=== PATIENT | female | born 1935 | race Caucasian/White ===

== ENCOUNTER 2017-12-23 10:17 | Day surgery (SDC) | payer OTHER ==
[~2017-12-23] VITALS: Ht 165.1 cm; Wt 72.6 kg
[2017-12-23] MEDS ORDERED: SEVOFLURANE 15 MIN GAS INH ONE (11:30)
[2017-12-23] MEDS ORDERED: KETOROLAC TROMETHAMINE 30 MG VIAL IVP ONE (11:30)
[2017-12-23] MEDS ORDERED: fentaNYL CITRATE/PF 100 MCG/2 ML AMP IVP ONE (11:30)
[2017-12-23] MEDS ORDERED: DEXAMETHASONE SOD PHOSPHATE 4 MG/ML VIAL IVP ONE (11:30)
[2017-12-23] MEDS ORDERED: ONDANSETRON HCL 4 MG/2 ML VIAL IVP ONE (11:30)
[2017-12-23] MEDS ORDERED: MIDAZOLAM HCL 5 MG/5 ML VIAL IVP ONE (11:30)
[2017-12-23] MEDS ORDERED: ROCURONIUM BROMIDE 10 MG/ML (ZEMURON) IV ONE (11:30)
[2017-12-23] MEDS ORDERED: LR 1,000 ML IV SCH (12:24)
[2017-12-23] MEDS ORDERED: MEPERIDINE HCL/PF 25 MG/ML DISP.SYRIN IVP PRN (12:30)
[2017-12-23] MEDS ORDERED: MORPHINE 4 MG/ML INJ. SYRINGE IVP PRN (12:30)
[2017-12-23] MEDS ORDERED: ACETAMINOPHEN WITH CODEINE 12.5 ML UDC PO PRN (12:45)
[2017-12-23] MEDS ORDERED: MORPHINE 4 MG/ML INJ. SYRINGE IVP ONE (13:00)
[2017-12-23] MEDS ORDERED: MORPHINE 4 MG/ML INJ. SYRINGE ONE (13:06)
[2017-12-23 14:31] VITALS: BP_SYST 156
== END 2017-12-23 15:00 | disposition home or self-care (01) ==
LOC: SDS 10:17 → SMU 10:17 → SDS 15:00
PROVIDERS: ATTEND Otolaryngology Plastic Surgery within the Head & Neck
DX: D14.1 Benign neoplasm of larynx (principal); I10 Essential (primary) hypertension; I48.91 Unspecified atrial fibrillation; E66.9 Obesity, unspecified; Z86.2 Personal history of diseases of the blood and blood-forming organs and certain disorders involving the immune mechanism
CPT/HCPCS: 31578; 88305; J1100; J1885; J2250; J2270; J2405; J3010; J7120